=== PATIENT | male | born 1950 | race Caucasian/White ===

== ENCOUNTER 2020-01-04 09:41 | Emergency (ER) | payer OTHER ==
[~2020-01-04] VITALS: Ht 172.7 cm; Wt 64.0 kg
[2020-01-04 10:01] LABS: BASOPHILS % 0.6 % (0.0-2.0); EOSINOPHILS % 4.7 % (0.0-5.0); HEMOGLOBIN. 11.3 g/dL (14.0-18.0); LYMPHOCYTES % 21.4 % (20.0-50.0); MEAN CORPUSCULAR HEMOGLOBIN 29.6 pg (28.0-32.0); MEAN CORPUSCULAR VOLUME 86.6 fL (80.0-94.0); MEAN PLATELET VOLUME 7.6 fl (7.4-10.4); MONOCYTES % 6.8 % (2.0-8.0); NEUTROPHILS % 66.5 % (40.0-76.0); PLATELET 225 x1000/uL (130-400); RED BLOOD CELL COUNT 3.81 mill/uL (4.7-6.1); RED CELL DISTRIBUTION WIDTH 12.6 % (11.6-14.6)
[2020-01-04 10:07] LABS: CHLORIDE 107 mEq/L (98-107)
[2020-01-04 10:16] LABS: INR 1.1; PROTHROMBIN TIME 11.3 sec (9.6-11.0)
[2020-01-04] MEDS ORDERED: ASPIRIN 325MG EC TABLET PO ONE (11:00)
[2020-01-04] MEDS ORDERED: CLOPIDOGREL 75MG TABLET PO ONE (11:00)
[2020-01-04 13:59] VITALS: BP 169/70
== END 2020-01-04 14:08 | disposition short-term general hospital (02) ==
LOC: ER 09:41 → CANBEDREQ 14:08 → ER 14:08
DX: G45.9 Transient cerebral ischemic attack, unspecified (principal); E11.9 Type 2 diabetes mellitus without complications; Z86.73 Personal history of transient ischemic attack (TIA), and cerebral infarction without residual deficits
CPT/HCPCS: 36415; 71045; 71250; 80053; 82962; 84484; 85025; 93005; 99285

== ENCOUNTER 2021-08-12 18:07 | Emergency (ER) | payer OTHER ==
[~2021-08-12] VITALS: Ht 167.6 cm; Wt 55.0 kg
[2021-08-12 19:12] LABS: BASOPHILS % 0.3 % (0.0-2.0); EOSINOPHILS % 1.5 % (0.0-5.0); HEMATOCRIT. 31.7 % (42.0-52.0); LYMPHOCYTES % 11.9 % (20.0-50.0); MEAN CORPUSCULAR HEMOGLOBIN 29.2 pg (28.0-32.0); MEAN CORPUSCULAR VOLUME 84.6 fL (80.0-94.0); MEAN PLATELET VOLUME 7.4 fl (7.4-10.4); MONOCYTES % 6.5 % (2.0-8.0); NEUTROPHILS % 79.8 % (40.0-76.0); PLATELET 232 x1000/uL (130-400); RED BLOOD CELL COUNT 3.75 mill/uL (4.7-6.1); RED CELL DISTRIBUTION WIDTH 13.3 % (11.6-14.6)
[2021-08-12 19:21] LABS: CHLORIDE 106 mEq/L (98-107)
[2021-08-12] MEDS ORDERED: SODIUM CHLORIDE 0.9% 1,000 ML IV ONE (21:15)
[2021-08-12] MEDS ORDERED: AMLODIPINE 5MG TABLET PO ONE (21:30)
[2021-08-12 22:31] VITALS: BP 165/67
== END 2021-08-12 22:31 | disposition home or self-care (01) ==
LOC: ER 18:07
DX: R55 Syncope and collapse (principal); N28.9 Disorder of kidney and ureter, unspecified; D64.9 Anemia, unspecified; E11.9 Type 2 diabetes mellitus without complications; Z86.73 Personal history of transient ischemic attack (TIA), and cerebral infarction without residual deficits; Z20.822 Contact with and (suspected) exposure to COVID-19
CPT/HCPCS: 36415; 71045; 80053; 83880; 84484; 85025; 87426; 93005; 96360; 99285; J7030; A4315

== ENCOUNTER 2021-12-18 12:32 | Emergency (ER) | payer OTHER ==
[~2021-12-18] VITALS: Ht 172.7 cm; Wt 52.0 kg
[2021-12-18] MEDS ORDERED: SODIUM CHLORIDE 0.9% 1000ML BAG (SEPSIS BOLUS) IV ONE (13:00)
[2021-12-18] MEDS ORDERED: VANCOMYCIN 1G PREMIX 200 ML IV ONE (13:00)
[2021-12-18] MEDS ORDERED: PIPERACILLIN/TAZ 3.375G PREMIX 50 ML IV ONE (13:00)
[2021-12-18] MEDS ORDERED: VANCOMYCIN 1G PREMIX 200 ML IV NR (13:00)
[2021-12-18 13:58] LABS: BASOPHILS % 0.2 % (0.0-2.0); EOSINOPHILS % 0.2 % (0.0-5.0); HEMATOCRIT. 27.4 % (42.0-52.0); HEMOGLOBIN. 8.8 g/dL (14.0-18.0); LYMPHOCYTES % 16.1 % (20.0-50.0); MEAN CORPUSCULAR HEMOGLOBIN 28.2 pg (28.0-32.0); MEAN CORPUSCULAR VOLUME 87.6 fL (80.0-94.0); MEAN PLATELET VOLUME 7.9 fl (7.4-10.4); MONOCYTES % 5.5 % (2.0-8.0); PLATELET 236 x1000/uL (130-400); RED BLOOD CELL COUNT 3.13 mill/uL (4.7-6.1); RED CELL DISTRIBUTION WIDTH 14.6 % (11.6-14.6)
[2021-12-18 14:07] LABS: INR 1.2; PARTIAL THROMBOPLASTIN TIME 21.9 sec (23.4-31.0)
[2021-12-18 14:10] LABS: CHLORIDE 128 mEq/L (98-107)
[2021-12-18] MEDS ORDERED: PIPERACILLIN/TAZ 3.375G PREMIX 50 ML IV NR (14:15)
[2021-12-18 14:52] LABS: BG BASE EXCESS -4.1 mmol/L (-2.0-2.0); BG CARBOXYHEMOGLOBIN 0.3 % (0.5-1.5); BG DEOXYHEMOGLOBIN 3.7 % (0.0-5.0); BG HCO3 ACT 19.4 mmol/L (22.0-26.0); BG METHEMOGLOBIN 0.1 % (0.0-1.5); BG OXYGEN SATURATION 96.3 % (92.0-98.5); BG OXYHEMOGLOBIN 95.9 % (94.0-97.0); BG PCO2 30.6 mmHg (35.0-45.0); BG PH 7.421 (7.350-7.450); BG PO2 89.6 mmHg (75.0-100.0); BG SAMPLE SITE RIGHT BRACHIAL; BG TOTAL HEMOGLOBIN 11.3 g/dL (12.0-18.0); BG VENT MODE ROOM AIR
[2021-12-18] MEDS ORDERED: ASPIRIN 81MG TABLET PO ONE (15:30)
[2021-12-18] MEDS ORDERED: LEVETIRACETAM 500MG PREMIX 100 ML IV ONE (15:30)
[2021-12-18 16:31] LABS: CLARITY URINE CLOUDY (CLEAR); COLOR URINE YELLOW (YELLOW); KETONES URINE TRACE (NEGATIVE); LEUKOCYTE ESTERASE URINE 3+ (NEGATIVE); NITRITE URINE POSITIVE (NEGATIVE); OCCULT BLOOD URINE 3+ (NEGATIVE); PROTEIN URINE 2+ (NEGATIVE); SPECIFIC GRAVITY URINE 1.043 (1.005-1.030); UROBILINOGEN URINE 0.2 E.U./dL (0.2-1.0)
[2021-12-18 22:02] VITALS: BP 148/79
== END 2021-12-18 22:28 | disposition short-term general hospital (02) ==
LOC: ER 12:42 → EDBEDREQ 12:52 → ER 22:28 → CANBEDREQ 22:38
DX: R41.82 Altered mental status, unspecified (principal); A41.9 Sepsis, unspecified organism; N39.0 Urinary tract infection, site not specified; D64.9 Anemia, unspecified; F03.90 Unspecified dementia, unspecified severity, without behavioral disturbance, psychotic disturbance, mood disturbance, and anxiety; E11.9 Type 2 diabetes mellitus without complications; Z86.73 Personal history of transient ischemic attack (TIA), and cerebral infarction without residual deficits; Z20.822 Contact with and (suspected) exposure to COVID-19
CPT/HCPCS: 36415; 36600; 70450; 70496; 70498; 71045; 80053; 81003; 82140; 82375; 82805; 82962; 83605; 83880; 84145; 84484; 85025; 85610; 85730; 86850; 86900; 86901; 87040; 87077; 87086; 87186; 87426; 93005; 96365; 96366; 96368; 99291; C9803; J1953; J2543; J3370; J7030